=== PATIENT | male | born 1945 | race Caucasian/White ===

== ENCOUNTER 2023-11-26 06:00 | Outpatient (RCR) | payer MEDICARE, OTHER, SELFPAY | END 2023-12-22 23:59 | disposition home or self-care (01) | LOC: MPT 06:00 | PROVIDERS: PCP Family Medicine; Visit Provider Nurse Practitioner Family | DX: R26.9 Unspecified abnormalities of gait and mobility (principal) | CPT/HCPCS: 97110; 97112; 97116; 97162 ==

== ENCOUNTER 2023-12-23 06:00 | Outpatient (RCR) | payer MEDICARE, OTHER, SELFPAY | END 2024-01-22 23:59 | disposition home or self-care (01) | LOC: MPT 06:00 | PROVIDERS: PCP Family Medicine; Visit Provider Nurse Practitioner Family | DX: R26.89 Other abnormalities of gait and mobility (principal) | CPT/HCPCS: 97110; 97112 ==

== ENCOUNTER 2024-01-23 06:00 | Outpatient (RCR) | payer MEDICARE, SELFPAY | END 2024-02-22 23:59 | disposition home or self-care (01) | LOC: MPT 06:00 | PROVIDERS: PCP Family Medicine; Visit Provider Nurse Practitioner Family | DX: R26.89 Other abnormalities of gait and mobility (principal) | CPT/HCPCS: 97110; 97112; 97116 ==

== ENCOUNTER 2024-02-23 06:00 | Outpatient (RCR) | payer MEDICARE, SELFPAY | END 2024-03-23 23:59 | disposition home or self-care (01) | LOC: MPT 06:00 | PROVIDERS: PCP Family Medicine; Visit Provider Nurse Practitioner Family | DX: R26.89 Other abnormalities of gait and mobility (principal) | CPT/HCPCS: 97110; 97112; 97116 ==

== ENCOUNTER 2024-03-24 06:00 | Outpatient (RCR) | payer MEDICARE, SELFPAY | END 2024-04-23 23:59 | disposition home or self-care (01) | LOC: MPT 06:00 | PROVIDERS: PCP Family Medicine; Visit Provider Nurse Practitioner Family | DX: R26.89 Other abnormalities of gait and mobility (principal) | CPT/HCPCS: 97110; 97112 ==

== ENCOUNTER → 2024-04-22 10:40 | Outpatient (BNVA) | payer OTHER, SELFPAY | PROVIDERS: PCP Family Medicine; Referring Provider Nurse Practitioner; Visit Provider Nurse Practitioner Family | DX: L71.8 Other rosacea (principal); D22.4 Melanocytic nevi of scalp and neck; S60.042A Contusion of left ring finger without damage to nail, initial encounter; X58.XXXA Exposure to other specified factors, initial encounter; L71.1 Rhinophyma; L82.1 Other seborrheic keratosis; L81.4 Other melanin hyperpigmentation; Z12.83 Encounter for screening for malignant neoplasm of skin | CPT/HCPCS: 99204 ==

== ENCOUNTER 2024-04-24 06:00 | Outpatient (RCR) | payer MEDICARE, SELFPAY | END 2024-05-23 23:59 | disposition home or self-care (01) | LOC: MPT 06:00 | PROVIDERS: PCP Family Medicine; Visit Provider Nurse Practitioner Family | DX: R26.89 Other abnormalities of gait and mobility (principal) | CPT/HCPCS: 97110; 97112; 97116; 97530 ==

== ENCOUNTER → 2025-04-29 13:18 | Outpatient (BNVA) | payer OTHER, SELFPAY | PROVIDERS: PCP Family Medicine; Visit Provider Nurse Practitioner Family | DX: L82.1 Other seborrheic keratosis (principal); L71.8 Other rosacea; L81.4 Other melanin hyperpigmentation; L57.8 Other skin changes due to chronic exposure to nonionizing radiation; L71.1 Rhinophyma; D18.01 Hemangioma of skin and subcutaneous tissue | CPT/HCPCS: 99214 ==